=== PATIENT | female | born 1935 | race Caucasian/White ===

== ENCOUNTER 2024-09-28 11:15 | Day surgery (SDC) | payer MEDICARE ==
[~2024-09-28 11:15] MED LIST: LACTATED RINGERS 1,000 ML IV SCH
[2024-09-28 11:51] VITALS: TEMP 98.1
[2024-09-28] MEDS: LACTATED RINGERS 1,000 ML IV SCH (12:00)
[2024-09-28] MEDS: LACTATED RINGERS 1,000 ML IV ONE (12:01)
[2024-09-28] MEDS: ATROPINE SULFATE 0.4 MG/ML 1 ML VIAL IM ONE (12:04)
[2024-09-28] MEDS ORDERED: PROPOFOL 10 MG/ML 20 ML VIAL IV ONE (12:07)
[2024-09-28] MEDS ORDERED: LIDOCAINE 2% (PF) 20 MG/ML 5 ML VIAL ONE (12:07)
[2024-09-28] MEDS: LIDOCAINE 2% GLYDO JELLY 6 ML APPL MUCOUS MEM ONE (12:11)
[2024-09-28] MEDS: LIDOCAINE 2% INJ 20 MG/ML INTRATRACH ONE ×2 (12:12)
[2024-09-28 12:30] VITALS: BP 113/67; PULSE 73; RESP 18
--- NOTE | 2024-09-28 13:22 | OP ---
OPERATIVE REPORT DATE OF SERVICE : PROCEDURES PERFORMED: Bronchoscopy, airway examination, therapeutic lavage, BAL, lingula. PREOPERATIVE DIAGNOSES: Chronic cough, metastatic breast cancer. POSTOPERATIVE DIAGNOSES: Chronic cough, metastatic breast cancer. PLATER HELPER: Dr. Chapa. There was informed consent and universal timeout. The patient's procedure took place in room #1 [facility]. ANESTHESIA PROVIDED: Monitored anesthesia care. After the patient was adequately sedated and being fully monitored, the bronchoscope was inserted through the right nostril. It passed through the right nasopharynx into the oropharynx. The hypopharynx was identified. The hypopharyngeal structures, including anterior commissure, true cords, false cords, piriform sinuses, right and left, vallecula, epiglottis, all appeared normal. The glottic opening was topicalized. The bronchoscope was inserted through the glottic opening into the trachea. Trachea appeared normal. Tracheal gilson was sharp. The right and left mainstem were topicalized. The right upper lobe and its 3 segments, right middle lobe and its 2 segments, right lower lobe and its 5 segments, left upper lobe proper and its 2 segments, lingula and its 2 segments, left lower lobe and its 4 segments all had similar findings of moderate to severe bronchitis, hyperemia, and erythema of the airways. The airways were quite inflamed, bled easily. There was mucosal friability and vascular engorgement. There was no dominant mass or tumor. Minimal secretions. The bronchoscope was then wedged into the lingula. We did a BAL. About 25 mL of fluid was recovered. The fluid will be sent for analysis including cytology and microbiology. The patient tolerated the procedure well. The bronchoscope was withdrawn. There was no immediate complication. MMODL / IJN: [id number] /
[2024-09-28 20:57] LABS: Appearance,BF Bloody (Clear); RBC, Body Fluid 2007500 /UL (0-2000)
[2024-09-29 13:13] LABS: Nucleated Cells, Body Fluid 220 /UL
== END 2024-09-28 13:31 | disposition home or self-care (01) ==
LOC: ORWHC2ENDO 11:15
PROVIDERS: ATTEND Internal Medicine Critical Care Medicine
DX: J45.909 Unspecified asthma, uncomplicated (principal); R05.3 Chronic cough; Z85.3 Personal history of malignant neoplasm of breast; Z79.890 Hormone replacement therapy; Z79.51 Long term (current) use of inhaled steroids; E03.9 Hypothyroidism, unspecified; I10 Essential (primary) hypertension; Z85.830 Personal history of malignant neoplasm of bone
CPT/HCPCS: 89050; 87070; 87205; 87116; 87102; 87206; 31624; J0461; J2704; J2003 ×2; 88108; 88305